=== PATIENT | male | born 1995 | race Hispanic/Latino ===

== ENCOUNTER 2017-05-02 00:08 | Emergency (ER) | payer SELFPAY ==
[2017-05-02] MEDS ORDERED: Bacitracin Zinc 1 Packet ONE (01:05)
== END 2017-05-02 01:40 | disposition home or self-care (01) ==
LOC: ERS 00:08
DX: S61.323A Laceration with foreign body of left middle finger with damage to nail, initial encounter (principal); V89.9XXA Person injured in unspecified vehicle accident, initial encounter
CPT/HCPCS: 12001